=== PATIENT | female | born 1935 | race Caucasian/White ===

== ENCOUNTER → 2018-08-26 | Outpatient (CLI) | payer MEDICARE, BC, OTHER ==
[2018-08-26 09:18] LABS: CREATININE 1.6 mg/dL (0.6-1.0); GFR 30.9
--- NOTE | 2018-08-26 10:10 | RAD ---
Examination: CT chest without contrast HISTORY: History of right-sided chest pain, shoulder pain after lifting COMPARISON: 01/09/2008 TECHNIQUE: Axial CT images of chest were performed without contrast. Coronal and sagittal reformats are performed Exposure: One or more of the following individualized dose reduction techniques were utilized for this examination: 1. Automated exposure control 2. Adjustment of the mA and/or kV according to patient size 3. Use of iterative reconstruction technique FINDINGS: There is a small hypodense nodule identified in the left lobe of thyroid gland measuring 1 cm. The visualized central airways are patent. The heart size grossly appears unremarkable. Coronary artery calcification is identified. Mild aortic atherosclerosis. Calcified right hilar and mediastinal lymph nodes identified. Calcified nodules identified in the right lower lobe and right middle lobe of the lung likely calcified granulomas. Minimal linear atelectasis left upper lobe of the lung anteriorly. The visualized noncontrasted liver, spleen demonstrates a few calcified granulomas. The stomach is minimally distended. Partially visualized cystic structure identified in the right kidney measuring 2.7 cm Mild degenerative changes thoracic spine. No evidence of displaced right rib fracture. IMPRESSION: 1. No acute cardiopulmonary findings. 2. Coronary artery calcifications. 3. 1 cm nodule identified in the left lobe of thyroid gland. Recommend follow-up ultrasound thyroid gland. Electronically signed by: Stuart Montgomery MD (08/26/2018 10:06 AM) [place] [id number]
== END | disposition home or self-care (01) ==
LOC: CT 08:12
PROVIDERS: ATTEND Nurse Practitioner Family
DX: M47.894 Other spondylosis, thoracic region (principal); I70.0 Atherosclerosis of aorta; I25.10 Atherosclerotic heart disease of native coronary artery without angina pectoris; R07.89 Other chest pain
CPT/HCPCS: 36415; 71250; 82565; 84520

== ENCOUNTER → 2018-11-12 | Outpatient (CLI) | payer MEDICARE, BC, OTHER ==
--- NOTE | 2018-11-12 15:41 | RAD ---
EXAM: Head CT without contrast. HISTORY: Fall. TECHNIQUE: Computed tomographic images of the head were obtained without contrast. *One or more of the following individualized dose reduction techniques were utilized for this examination: 1. Automated exposure control. 2. Adjustment of the mA and/or kV according to patient size. 3. Use of iterative reconstruction technique. COMPARISON: None. FINDINGS: There is no acute or subacute extra-axial or intraparenchymal hemorrhage. There is no mass effect or midline shift. There is no hydrocephalus. There are areas of decreased attenuation within the cerebral white matter, nonspecific and likely related to chronic small vessel disease. There is a small right frontal scalp contusion. The orbits and visualized portions the paranasal sinuses mastoid air cells are unremarkable. There are few small arachnoid granulations and suspected hemangiomas within the calvarium. IMPRESSION: 1. No acute intracranial finding. 2. Decreased attenuation within the cerebral white matter, a nonspecific finding likely due to chronic small vessel disease. 3. Small right frontal scalp contusion. Electronically signed by: Mary Bernal MD (11/12/2018 3:38 PM) [id number]
== END | disposition home or self-care (01) ==
LOC: CT 15:04
PROVIDERS: ATTEND Nurse Practitioner Family
DX: S00.03XA Contusion of scalp, initial encounter (principal); M79.81 Nontraumatic hematoma of soft tissue; R90.82 White matter disease, unspecified; W07.XXXA Fall from chair, initial encounter; Y93.89 Activity, other specified; Y92.89 Other specified places as the place of occurrence of the external cause; Y99.8 Other external cause status
CPT/HCPCS: 70450

== ENCOUNTER → 2018-11-15 | Outpatient (CLI) | payer MEDICARE, BC, OTHER ==
--- NOTE | 2018-11-15 17:14 | RAD ---
THYROID ULTRASOUND History: Abnormal CT chest. Comparison: CT chest without contrast, August 26, 2018. Technique: Multiple grayscale and color Doppler images of the thyroid gland were obtained. Findings: Measurements in length, AP (height), and transverse (width), respectively, unless otherwise stated. The thyroid isthmus measures 3 mm and is heterogeneous. The right thyroid lobe measures 3.9 x 1.1 x 1 cm. There is a 4 mm cyst in the upper right thyroid lobe. Right thyroid lobe is otherwise relatively homogeneous. There is a benign lymph node inferior to the right thyroid lobe. The left thyroid lobe measures 5.4 x 1.3 x 1.3 cm. 4 subcentimeter solid nodules are identified. There is a cyst of the inferior left thyroid lobe. This accounts for the nodule on CT. ACR Thyroid Imaging, Reporting And Data System (TI-RADS): White Paper Of The ACR TI-RADS Committee. Journal of the [employer], volume 14, issue 5, pages 587-595 (January 2017). IMPRESSION: There is a 8 mm cyst in the inferior left thyroid lobe accounting for the finding on CT chest. No suspicious thyroid nodule is identified to warrant follow-up. Electronically signed by: Kingsley Gallegos MD (11/15/2018 5:11 PM) [id number]
== END | disposition home or self-care (01) ==
LOC: US 10:44
PROVIDERS: ATTEND Nurse Practitioner Family
DX: E04.1 Nontoxic single thyroid nodule (principal)
CPT/HCPCS: 76536

== ENCOUNTER → 2020-04-29 | Outpatient (CLI) | payer MEDICARE, BC, OTHER ==
--- NOTE | 2020-04-29 12:40 | RAD ---
CT HEAD WO CONTRAST History: Possible seizures, shaking Comparison: 11/12/2018 Technique: Noncontrast CT imaging was performed of the head. Exposure: One or more of the following individualized dose reduction techniques were utilized for this examination: 1. Automated exposure control 2. Adjustment of the mA and/or kV according to patient size 3. Use of iterative reconstruction technique. Findings: No acute extra-axial or parenchymal hemorrhage is identified. There is no significant intra-axial mass effect, midline shift, or extra-axial fluid collection. There is again some scattered mild/moderate ill-defined low-density of the supratentorial parenchyma bilaterally not obviously changed. The stanley-white differentiation of the major vascular territories is preserved. Ventricular size is proportionate to sulcal spaces, mild generalized supratentorial atrophy. The mastoid air cells and the visualized paranasal sinuses are aerated. No acute calvarial abnormality is identified. There is some atherosclerotic calcification of the carotid siphons bilaterally. Impression: 1. No convincing acute intracranial abnormality identified. There is again some scattered ill-defined low-density of the supratentorial parenchyma, nonspecific findings more commonly due to chronic microvascular ischemic disease in a patient this age. Electronically signed by: Justus Soriano MD (04/29/2020 12:37 PM) [id number]
== END | disposition home or self-care (01) ==
LOC: CT 09:58
PROVIDERS: ATTEND Psychiatry & Neurology Neurology
DX: G31.89 Other specified degenerative diseases of nervous system (principal); I65.23 Occlusion and stenosis of bilateral carotid arteries; R56.9 Unspecified convulsions
CPT/HCPCS: 70450

== ENCOUNTER → 2020-05-06 | Outpatient (CLI) | payer MEDICARE, BC, OTHER ==
--- NOTE | 2020-05-06 17:05 | RAD ---
EXAM: KNEE STANDING BILAT AP, KNEE RIGHT 2V. HISTORY: Right knee pain. COMPARISON: None. FINDINGS: On the right, the lateral and patellofemoral compartmental joint spaces are mostly effaced. There is exaggeration of the normal valgus angulation with mild lateral subluxation of the tibia. Large loose bodies posteriorly measure up to 2.7 x 1.1 cm. There is a small joint effusion. On the left, osteophytosis indicates mild medial and lateral compartmental osteoarthritis. A small loose body is suspected within the left lateral compartment measuring 4 mm. Another ossific density superior to the left patella measures 2.4 x 1.9 cm and may represent heterotopic ossification or a suprapatellar loose body. No fractures are identified bilaterally. Osteopenia appears moderate. IMPRESSION: 1. 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 2. Mild medial and lateral compartmental osteoarthritis on the left as above. Electronically signed by: Robert Mosquera MD (05/06/2020 5:02 PM) [id number]
== END | disposition home or self-care (01) ==
LOC: DXRAD 14:18
PROVIDERS: ATTEND Orthopaedic Surgery
DX: M17.11 Unilateral primary osteoarthritis, right knee (principal); M17.12 Unilateral primary osteoarthritis, left knee; M25.461 Effusion, right knee; M25.762 Osteophyte, left knee; M85.88 Other specified disorders of bone density and structure, other site
CPT/HCPCS: 73560; 73565

== ENCOUNTER → 2020-06-22 | Outpatient (CLI) | payer MEDICARE, BC, OTHER ==
--- NOTE | 2020-06-22 15:37 | RAD ---
NECK SOFT TISSUE History: Left posterior neck lump Comparison: None. Findings: Multiple sonographic images of the site of concern of the left neck region are submitted. In this area, there is a 0.9 x 0.8 x 0.3 cm oblong lymph node. Otherwise no sonographic abnormality is demonstrated. Impression: 1. There is nonspecific lymph node near the area of concern in the left neck, not considered significantly enlarged. No other sonographic abnormality is demonstrated. Electronically signed by: Justus Soriano MD (06/22/2020 3:35 PM) [facility]
== END ==
LOC: US 14:38
PROVIDERS: ATTEND Family Medicine
DX: R22.1 Localized swelling, mass and lump, neck (principal)
CPT/HCPCS: 76536

== ENCOUNTER → 2020-07-24 | Outpatient (CLI) | payer MEDICARE, BC, OTHER ==
[2020-07-24 16:42] LABS: ALBUMIN 3.2 g/dL (3.4-5.0); CALCIUM 8.4 mg/dL (8.5-10.1); CREATININE 1.8 mg/dL (0.6-1.0); GFR 26.9; MAGNESIUM 1.6 mg/dL (1.8-2.4); PHOSPHORUS 3.3 mg/dL (2.6-4.7); POTASSIUM 4.4 mmol/L (3.5-5.1)
== END ==
LOC: LAB 15:25
PROVIDERS: ATTEND Internal Medicine Nephrology
DX: I12.9 Hypertensive chronic kidney disease with stage 1 through stage 4 chronic kidney disease, or unspecified chronic kidney disease (principal); N18.32 Chronic kidney disease, stage 3b; N14.0 Analgesic nephropathy; E87.5 Hyperkalemia; N25.81 Secondary hyperparathyroidism of renal origin
CPT/HCPCS: 36415; 80069; 83735

== ENCOUNTER 2020-10-18 12:13 | Emergency (ER) | payer MEDICARE, BC, OTHER ==
[~2020-10-18] VITALS: Ht 157.5 cm; Wt 97.3 kg
[2020-10-18] MEDS ORDERED: IV NORMAL SALINE 1,000ML 1,000 ML IV ONE (12:30)
[2020-10-18] MEDS ORDERED: NOREPINEPHRINE BITARTRATE 4 MG/4 ML VIAL. IV ONE (12:43)
[2020-10-18] MEDS ORDERED: IV NORMAL SALINE 250ML 250 ML ONE (12:44)
[2020-10-18] MEDS ORDERED: EPINEPHrine SYRINGE 1 MG/10 ML SYRINGE IV ONE ×6 (12:45→14:00)
[2020-10-18] MEDS: NOREPINEPHRINE BITARTRATE 8 MG in IV DEXTROSE 5% 250 ML IV PRN ×2 (12:49→13:07)
--- NOTE | 2020-10-18 12:50 | PHYS DOC ---
Past History Past Medical History: Hypertension, Renal Disease Additional Past Medical Histor: Hyperkalemia, Secondary hyperparathyroidism Past Medical History Limited secondary to cardiopulmonary arrest. Past Surgical History Limited secondary to cardiopulmonary arrest. Social History Limited secondary to cardiopulmonary arrest. General Adult EDM: Chief Complaint: CPR/FULL ARREST HPI: HPI: 85-year-old female presents via EMS as CODE BLUE. Patient apparently collapsed at her home in front of and was able to catch and help her slide down the rest of the stairs. Patient with history of renal disease. Patient had previously had some emergent dialysis however kidneys have recovered. Patient was apparently seen in PCP office today with concern for possible UTI due to patient "not feeling well". History of present illness limited secondary to cardiopulmonary arrest. Review of Systems: Review of Systems: Review of systems limited secondary to cardiopulmonary arrest Current Medications: Current Meds: Current Medications Medications (Trade) Dose Ordered Sig/Greg Start Time Stop Time Status Last Admin Dose Admin Sodium Chloride 1,000 ml @ 1,000 mls/hr 1X ONCE 10/18/20 12:30 10/18/20 13:29 UNV Physical Exam: PE: Constitutional: Well developed, elderly HENT: Normocephalic, atraumatic Eyes:Conjunctiva normal, no discharge Neck: No crepitance, supple Lungs & Thorax: Artificial chest rise and fall with [id number], equal chest rise and fall noted with [id number], Hussain device plunger resting on sternum Abdomen: Soft, no tenderness, no significant distention Skin: Cool, dry, no erythema, compression abrasion from Hussain device to sternum Extremities: No deformity, no edema Neurologic: GCS 3, obtunded EKG: EKG: @1235 wide complex rhythm at 60bpm, some pacer spikes noted consistent for paced rhythm, QRS 284ms, QT/QTc 552/552ms @1521 Paced with runs of Vtach at 87bpm, Radiology/Procedures: Radiology/Procedures: PROCEDURE: CT HEAD WO CONTRAST Exam: CT head INDICATION: Cardiopulmonary arrest TECHNIQUE: Sequential axial images through the head were obtained without the administration of IV contrast. Comparisons: 10/18/2020 FINDINGS: No focal parenchymal lesion or hemorrhage is identified. There is no midline shift or sulcal effacement. Moderate patchy hypodensity in the periventricular and subcortical white matter, similar to prior exam. No acute vascular territory infarction is identified. Crews-white distinction is preserved. The ventricular system is within normal limits without compression hydrocephalus. The basal cisterns are well maintained. The visualized portions of the paranasal sinuses and mastoid air cells are well- pneumatized. No acute fractures. IMPRESSION: No acute intracranial abnormality. Exposure: One or more of the following in the visualized dose reduction techniques were utilized for this examination: 1. Automated exposure control 2. Adjustment of the MA and/or KV according to patient size Use of iterative of reconstructive technique Electronically signed by: Ziyad Constantino MD (10/18/2020 3:40 PM) [facility] PROCEDURE: VASCULAR ACCESS SONO GUIDANCE INDICATION: Reason: central line placement / Spl. Instructions: / History: COMPARISON: None. FINDINGS: Focused ultrasound was obtained to assist the clinical service with catheter placement. 2 Saved images were obtained with the carotid artery and jugular vein seen. IMPRESSION: * Ultrasound was utilized by the clinical service to assist with catheter placement. Electronically signed by: Juan Pablo Waller MD (10/18/2020 4:49 PM) [id number] Course & Med Decision Making: Course & Med Decision Making Pertinent Labs and Imaging studies reviewed. (See chart for details) Patient presents as CODE BLUE per EMS. EMS reports giving 2 rounds of epinephrine with initial rhythm of PEA. Hussain mechanical compression device utilized. Patient continued PEA arrest upon arrival. Glucose stable per accucheck. ACLS protocol continued. Intubation performed. Mechanical c ompressions continued. Inbtation successful. A total of 3 more round of epi given with return of spontaneous circulation. CXR with good position of ETT. Labs obtained and posted to chart. Lactic acid significantly elevated. Potassium 5.3. Creat 2.2. Patient subsequently with loss of pulse x 2 episodes. ACLS continued. Patient required additional doses of epinephrine and a dose of bicarb. Patient did have one episode of Vfib requiring defibrillation at 200J. (see code report) Levophed initiated due to hypotension. VS stabalized and patient maintaining blood pressure and pulse. Family requesting child development professor to be present at bedside. Differential Specialist arrived and with family. CT head obtained without acute changes appreciated in comparison to prior CT i maging comparison. Patient did have some gag reflex and appears to move some facial muscles/swallowing. Fentanyl and Versed provided. Patient had run of Vtach with pulse. Amiodarone 150mg provided. Patient in critical condition. Central line placed to left femoral. Core cooling measures initiated with ICE packs. Family requests no further heroic measures. Patient requiring transfer to higher level of care facility. Family requesting [facility]. Discussed case with Dr. Hamzah Ivey ([facility]) who reportedly checked and no ICU bed availability at any [facility]. Family then requesting [facility]. [facility] contacted and also reported some concern for no ICU availability.. Discussed findings and plan with family, who acknowledges understanding and agreement. Decision to transfer to [facility]. Dr. Burnett (hospitalist) notified and is accepting of admission to ICU. Patient subsequently requiring addition of epinephrine drip. Patient with limited improvement on new ABG. Patient ultimately with decreased O2 sat and no end tidal CO2 and no blood pressure. Re-evaluation of patient performed. Patient without pulse on palpation. Family at bedside. NO dopplerable pulse appreciated to right carotid. No cardiac activity noted on bedside ultrasound. Time of called at 181. Notified Dr. Rojo (PCP) regarding, who is in agreement with signing certificate. Notified Dr. Burnett (hospitalist at [facility]) regarding change in patient's condition. Dragon Disclaimer: Dragbell Disclaimer: This electronic medical record was generated, in whole or in part, using a voice recognition dictation system. Departure Departure: Impression: Primary Impression: Cardiopulmonary arrest with successful resuscitation Additional Impression: Lactic acidosis Disposition: 05 DC/TRF OTHER TYPE INSTITUTI ([facility]- Dr. Burnett accepting) Admitting Physician: Karolyn Burnett Condition: CRITICAL Referrals: TARAN ROJO MD (PCP) Central Line Central Line : Central Line Lumen: triple Central Line Procedure: sterile drapes applied, sterile dressing applied Central Line Postion: femoral (L) Complications: none Central Line Post Position: sutured, good blood return Progress Written consent obtained from spouse. Time out performed. Hand hygiene utilized. Sterile attire donned. Wound cleaned with ChloraPrep. Sterile drapes placed. Bedside ultrasound utilized with confirmation of thin-walled oval-shaped hypoechoic structure consistent for femoral vein on left. Successful placement of triple-lumen catheter performed over wire via Seldinger technique. Catheter secured in place and sterile dressing applied. Patient tolerated procedure well and without difficulty. Intubation Intubation : Tube Size (cm): 7.5 Breath Sounds after Intubation: equal Intubation Complications: no complications Post Intubation Xray: Yes Progress Emergent consent utilized. Time out performed. Hand hygiene utilized. Emergent intubation performed under CPR. Bedside glide scope utilized. Successful placement of 7.5 cuffed ET tube which was marked 22 cm at the lip. Patient tolerated procedure well and without difficulty. X-ray obtained with findings of tube in good position. COVID-19 Assessment COVID-19 Patient Risks: Age 65 or older: Yes Sign of co-morbidity: Yes Exp to person + for COVID: No Exp to PUI: No Travel from affected area: No Lower respiratory symptoms: No Fever: No Other: Yes PPE Use: Full PPE with N95 mask or PAPR: Yes Critical Care Time Critical care time was 75 minutes which includes time at bedside, spent in discussion of patient's care with specialists and/or family members, with inter pretation of laboratory and/or radiological studies and is exclusive of procedures. NICOLAS PALAFOX DO Oct 18, 2020 12:50
[2020-10-18 13:05] LABS: CALCIUM 7.4 mg/dL (8.5-10.1); CREATININE 2.4 mg/dL (0.6-1.0); GFR 19.2; POTASSIUM 5.3 mmol/L (3.5-5.1)
[2020-10-18 13:09] LABS: ALBUMIN 2.8 g/dL (3.4-5.0); MAGNESIUM 2.1 mg/dL (1.8-2.4); TOTAL BILIRUBIN 0.3 mg/dL (0.2-1.0); TOTAL PROTEIN 5.6 g/dL (6.4-8.2)
[2020-10-18 13:12] LABS: BASO # 0.1 x10^3/uL (0.0-0.2); BASO % 1 % (0-3); EOS # 0.1 x10^3/uL (0.0-0.7); EOS % 1 % (0-3); HEMATOCRIT 36.2 % (36.0-47.0); HEMOGLOBIN 10.6 g/dL (12.0-15.5); LYMPH # 3.9 x10^3/uL (1.0-4.8); LYMPH % 40 % (24-48); MEAN CORPUSCULAR HEMOGLOBIN 32 pg (25-35); MEAN CORPUSCULAR HGB CONC 29 g/dL (31-37); MEAN CORPUSCULAR VOLUME 108 fL (79-100); MONO # 0.7 x10^3/uL (0.0-1.1); MONO % 7 % (0-9); NEUT % 51 % (31-73); PLATELET COUNT 98 x10^3/uL (140-400); RED BLOOD COUNT 3.35 x10^6/uL (3.50-5.40); RED CELL DISTRIBUTION WIDTH 17.4 % (11.5-14.5); WHITE BLOOD COUNT 9.8 x10^3/uL (4.0-11.0)
[2020-10-18] MEDS ORDERED: SODIUM BICARB ADULT 8.4% 50 MEQ/50 ML DISP.SYRIN. IV ONE ×2 (13:30→18:00)
[2020-10-18] MEDS ORDERED: BUMETANIDE 1 MG/4 ML VIAL. IVP ONE (13:30)
[2020-10-18 14:56] LABS: % ATYL 1 % (0-0); % BANDS 2 % (0-9); % EOS 2 % (0-5); % LYMPHS 32 % (24-48); % METAS 2 % (0-0); % MONOS 10 % (0-10); % MYELOS 2 % (0-0); % SEGS 49 % (35-66); PLT ESTIMATE DECREASED (ADEQUATE)
[2020-10-18 14:57] LABS: ANISOCYTOSIS SLIGHT; OVALOCYTES PRESENT; POLYCHROMASIA PRESENT; TEAR DROP CELLS PRESENT
[2020-10-18] MEDS ORDERED: AMIODARONE 150 MG in IV DEXTROSE 5% 100 ML IVP ONE (15:30)
[2020-10-18] MEDS ORDERED: MIDAZOLAM HCL PF 5 MG/5 ML VIAL. IV ONE (15:30)
--- NOTE | 2020-10-18 15:42 | RAD ---
Exam: CT head INDICATION: Cardiopulmonary arrest TECHNIQUE: Sequential axial images through the head were obtained without the administration of IV co ntrast. Comparisons: 10/18/2020 FINDINGS: No focal parenchymal lesion or hemorrhage is identified. There is no midline shift or sulcal effaceme nt. Moderate patchy hypodensity in the periventricular and subcortical white matter, similar to prior exa m. No acute vascular territory infarction is identified. Crews-white distinction is preserved. The ventricular system is within normal limits without compression hydrocephalus. The basal cisterns are well maintained. The visualized portions of the paranasal sinuses and mastoid air cells are well-pneumatized. No acute fractures. IMPRESSION: No acute intracranial abnormality. Exposure: One or more of the following in the visualized dose reduction techniques were utilized for this examination: 1. Automated exposure control 2. Adjustment of the MA and/or KV according to patient size Use of iterative of reconstructive technique Electronically signed by: Ziyad Constantino MD (10/18/2020 3:40 PM) [facility]
[2020-10-18 15:46] LABS: BGAS PH 7.1 (7.35-7.45)
--- NOTE | 2020-10-18 16:26 | EKG ---
[address] [address] Test Date: 2020-10-18 Test Time: 15:21:34 Pat Name: JONATAN KENNEDY Department: Room: Gender: F Anchorman: JOSELIN : 1935 Requested By: NICOLAS PALAFOX Order Number: [id number] Reading MD: [place] Measurements Intervals [place] Rate: 87 P: [place]: QRS: -88 QRSD: 208 T: 89 QT: 428 QTc: 516 Interpretive Statements AV SEQUENTIAL PACED RHYTHM PROBABLE INTERMITTENT NSVT Electronically Signed On 10-26-2020 10:23:58 RETAIL SALES DIRECTOR by [place] Garrett
[2020-10-18] MEDS ORDERED: EPINEPHrine 5 MG in IV NORMAL SALINE 250ML 250 ML IV PRN (16:30)
--- NOTE | 2020-10-18 16:30 | EKG ---
[address] [address] Test Date: 2020-10-18 Test Time: 12:35:46 Pat Name: JONATAN KENNEDY Department: Room: Gender: F Parasitologist: JOSELIN : 1935 Requested By: NICOLAS PALAFOX Order Number: [id number] Reading MD: [place] Measurements Intervals [place] Rate: 60 P: [place]: QRS: -82 QRSD: 284 T: 88 QT: 552 QTc: 552 Interpretive Statements AV SEQUENTIAL PACED RHYTHM Electronically Signed On 10-26-2020 10:20:54 ANODIC TREATER by Lake Garrett
--- NOTE | 2020-10-18 16:52 | RAD ---
INDICATION: Reason: central line placement / Spl. Instructions: / History: COMPARISON: None. FINDINGS: Focused ultrasound was obtained to assist the clinical service with catheter placement. 2 Saved images were obtained with the carotid artery and jugular vein seen. IMPRESSION: * Ultrasound was utilized by the clinical service to assist with catheter placement. Electronically signed by: Juan Pablo Waller MD (10/18/2020 4:49 PM) [id number]
[2020-10-18 17:36] LABS: BGAS PH 7.15 (7.35-7.45)
[2020-10-18 17:50] VITALS: BP 68/30
--- NOTE | 2020-10-19 15:27 | RAD ---
XR CHEST 1V INDICATION: CPR . COMPARISON STUDY: None. FINDINGS: Life Support Devices: Endotracheal tube terminates 4.5 cm above the maureen. Left pectoral pacemaker. Lungs: Low lung volume. Diffuse bilateral opacities. Pleura: No pleural effusion or pneumothorax. Heart and Mediastinum: Normal cardiomediastinal silhouette and great vessels. IMPRESSION: 1. Endotracheal tube 4.5 cm above the maureen. 2. Diffuse bilateral opacities, which could represent edema or multifocal infection. Electronically signed by: Justus De Guzman MD (10/19/2020 3:25 PM) [facility]
== END 2020-10-18 19:42 | disposition short-term general hospital (02) ==
LOC: ER 12:13
DX: I46.9 Cardiac arrest, cause unspecified (principal); E87.2 Acidosis; I10 Essential (primary) hypertension; N25.81 Secondary hyperparathyroidism of renal origin; Z20.822 Contact with and (suspected) exposure to COVID-19
CPT/HCPCS: 31500; 36415; 36556; 51702; 70450; 71045; 80053; 82553; 82803; 82947; 83605; 83735; 83880; 84484; 85007; 85025; 85610; 85730; 87040; 87086; 92950; 93005; 96365; 96366; 96367; 96375; 96376; 99291; 99292; C9803; J0171; J0282; J2250; J3010; J3490; J7030; U0003